=== PATIENT | female | born 1995 | race Hispanic/Latino ===

== ENCOUNTER 2022-05-19 10:21 | Inpatient (IN) | payer BC, SELFPAY ==
[~2022-05-19 10:21] MED LIST: Bupivacaine HCl 0.5%/Epinephrine 1:200,000/PF 30 ml Vial ONE
[2022-05-19 10:41] VITALS: BMI 24.3
[2022-05-19] MEDS ORDERED: Ondansetron PF 4 MG/2 ML Vial IVP PRN ×4 (11:25→17:01)
[2022-05-19 11:26] LABS: Hemoglobin 11.2 g/dL (12.0-15.5); Mean Corpuscular HGB CONC 33.2 g/dL (32.0-36.0); Mean Corpuscular Hemoglobin 28.5 pg (27.0-33.0); Mean Corpuscular Volume 85.8 fl (81.6-98.3); Mean Platelet Volume 10.4 fl (7.4-10.4); Platelet Count 256 10x3/uL (150-450); RBC Distribution Width 16.7 % (11.5-14.5); Red Blood Cell (RBC) Count 3.93 10x6/uL (3.90-5.03); White Blood Cell (WBC) Count 8.2 10x3/uL (3.5-10.5)
[2022-05-19] MEDS ORDERED: Lactated Ringer's 1,000 ML IV SCH ×2 (11:30→13:45)
[2022-05-19] MEDS ORDERED: Dextrose 5%-Lactated Ringers 1,000 ML IV SCH (11:30)
[2022-05-19 12:26] LABS: SARS-CoV-2 NAA Rapid Test Not Detected (NotDetected)
[2022-05-19] MEDS ORDERED: NS w/ Oxytocin 30 units 500 ML ONE (13:41)
[2022-05-19] MEDS ORDERED: NS w/ Oxytocin 30 units 500 ML IV SCH ×3 (13:45→17:15)
[2022-05-19] MEDS ORDERED: Promethazine HCl 25 MG/ML VIAL IM PRN ×2 (13:45→15:31)
[2022-05-19] MEDS ORDERED: Misoprostol 200 MCG TAB PR PRN (13:45)
[2022-05-19] MEDS ORDERED: hydrALAZINE 20 MG/ML VIAL SLOW IVP PRN ×2 (13:45→17:01)
[2022-05-19] MEDS ORDERED: Ibuprofen 800 MG TAB PO PRN (13:45)
[2022-05-19] MEDS ORDERED: Lidocaine 1% (PF) 30 ML VIAL SC PRN (13:45)
[2022-05-19] MEDS ORDERED: Butorphanol Tartrate 1 MG/ML VIAL SLOW IVP PRN (13:45)
[2022-05-19] MEDS ORDERED: HYDROcodone/Acetaminophen 5/325 mg Tablet PO PRN ×3 (13:45→17:01)
[2022-05-19] MEDS ORDERED: Acetaminophen 500 MG TAB PO PRN (13:45)
[2022-05-19] MEDS ORDERED: Diphenoxylate HCl/Atropine Tablet PO PRN ×2 (13:45)
[2022-05-19] MEDS ORDERED: Docusate 100 MG CAP PO PRN (13:45)
[2022-05-19] MEDS ORDERED: Fentanyl 2 mcg/Bup 0.1% Cadd 100 ML ONE (14:34)
[2022-05-19] MEDS ORDERED: Naloxone HCl 0.4 mg/ml Vial IVP PRN ×2 (15:31)
[2022-05-19] MEDS ORDERED: Moisturizing Cream (Eucerin) 113 GM JAR TOP PRN (15:31)
[2022-05-19] MEDS ORDERED: ePHEDrine Sulfate 50 MG/10 ML VIAL SLOW IVP PRN (15:31)
[2022-05-19] MEDS ORDERED: diphenhydrAMINE 50 MG/ML VIAL IVP PRN (15:31)
[2022-05-19] MEDS ORDERED: Acetaminophen 325 MG TAB PO PRN (15:31)
[2022-05-19] MEDS ORDERED: Lactated Ringer's 500 ML IV PRN (15:35)
[2022-05-19] MEDS ORDERED: Communication Order-Pharmacy FS SCH (15:45)
[2022-05-19] MEDS ORDERED: Fentanyl 2 mcg/Bupivacaine 0.1% Cassette 100 ML EPIDURAL SCH (15:45)
[2022-05-19] MEDS ORDERED: Bisacodyl 10 MG SUPP PR PRN (17:01)
[2022-05-19] MEDS ORDERED: Zolpidem Tartrate 5 MG TAB PO PRN (17:01)
[2022-05-19] MEDS ORDERED: Benzocaine-Menthol 82.5 ML CAN TOP PRN (17:01)
[2022-05-19] MEDS ORDERED: Misoprostol 200 MCG TAB VAG PRN (17:01)
[2022-05-19] MEDS ORDERED: Milk Of Magnesia 30 ML UDCUP PO PRN (17:01)
[2022-05-19] MEDS ORDERED: Boostrix 0.5 ML (Tdap) VIAL (>/=7 yrs of age) IM ONE (17:01)
[2022-05-19] MEDS ORDERED: Preparation H Ointment 28 GM TUBE PR PRN (17:01)
[2022-05-19] MEDS ORDERED: Lanolin Ointment 7 GM TUBE TOP PRN (17:01)
[2022-05-19] MEDS ORDERED: diphenhydrAMINE 25 MG CAP PO PRN ×2 (17:01→17:03)
[2022-05-19] MEDS ORDERED: Witch Hazel-Glycerin 1 EACH JAR TOP PRN (17:03)
[2022-05-19 18:41] LABS: Hemoglobin 11.4 g/dL (12.0-15.5); Mean Corpuscular HGB CONC 33.3 g/dL (32.0-36.0); Mean Corpuscular Hemoglobin 29.4 pg (27.0-33.0); Mean Corpuscular Volume 88.1 fl (81.6-98.3); Mean Platelet Volume 10.6 fl (7.4-10.4); Platelet Count 267 10x3/uL (150-450); RBC Distribution Width 17.1 % (11.5-14.5); Red Blood Cell (RBC) Count 3.88 10x6/uL (3.90-5.03); White Blood Cell (WBC) Count 8.8 10x3/uL (3.5-10.5)
[2022-05-19 19:08] LABS: Syphilis Antibody Nonreactive (Nonreactive); Syphilis Antibody Index 0.37 S/CO (<1.00 Non-Reactive)
[2022-05-19 19:09] LABS: HBSAg Index 0.41 S/CO (0-0.99); HIV (1/2) Antibody/Antigen Non-Reactive (NonReactive); HIV 1/2 INDEX 0.11 S/CO (<1.00); Hep B Surf Ag Non-Reactive S/CO (NonReactive)
[2022-05-19] MEDS: Docusate 100 MG CAP PO SCH (21:22)
[2022-05-19] MEDS: Ibuprofen 800 MG TAB PO SCH (21:23)
[2022-05-20] MEDS: HYDROcodone/Acetaminophen 5/325 mg Tablet PO PRN ×2 (02:38→08:54)
[2022-05-20 04:48] LABS: Hemoglobin 10.2 g/dL (12.0-15.5); Mean Corpuscular HGB CONC 33.8 g/dL (32.0-36.0); Mean Corpuscular Hemoglobin 28.9 pg (27.0-33.0); Mean Corpuscular Volume 85.6 fl (81.6-98.3); Mean Platelet Volume 10.8 fl (7.4-10.4); Platelet Count 245 10x3/uL (150-450); RBC Distribution Width 16.9 % (11.5-14.5); Red Blood Cell (RBC) Count 3.53 10x6/uL (3.90-5.03); White Blood Cell (WBC) Count 9.5 10x3/uL (3.5-10.5)
[2022-05-20] MEDS: Ibuprofen 800 MG TAB PO SCH ×3 (05:54→22:04)
[2022-05-20] MEDS: Prenatal Vitamin 1 TAB PO SCH (08:54)
[2022-05-20] MEDS: Docusate 100 MG CAP PO SCH ×2 (08:54→22:04)
[2022-05-20] MEDS: Ferrous Sulfate 325 MG TAB PO SCH ×2 (08:54→16:26)
[2022-05-20 11:33] VITALS: BP 102/57
[2022-05-20] MEDS: Acetaminophen 325 MG TAB PO PRN ×2 (15:02→20:00)
[2022-05-20 20:47] VITALS: TEMP 97.8
[2022-05-21] MEDS: Ibuprofen 800 MG TAB PO SCH (05:33)
[2022-05-21] MEDS: Docusate 100 MG CAP PO SCH (09:17)
[2022-05-21] MEDS: Prenatal Vitamin 1 TAB PO SCH (09:17)
[2022-05-21] MEDS: Ferrous Sulfate 325 MG TAB PO SCH (09:18)
== END 2022-05-21 11:00 | disposition home or self-care (01) | DRG 807 ==
LOC: CSHLD/OP 10:21 → CSHLD 12:14 → CSHPP 19:25
PROVIDERS: ADMIT Obstetrics & Gynecology; ATTEND Obstetrics & Gynecology
PROC: 10E0XZZ Delivery of Products of Conception, External Approach (ICD-10-PCS; principal; 2022-05-19)
PROC: 10907ZC Drainage of Amniotic Fluid, Therapeutic from Products of Conception, Via Natural or Artificial Opening (ICD-10-PCS; 2022-05-19)
DX: O99.02 Anemia complicating childbirth (principal); Z37.0 Single live birth; Z3A.38 38 weeks gestation of pregnancy; Z20.822 Contact with and (suspected) exposure to COVID-19; D64.9 Anemia, unspecified; Z79.899 Other long term (current) drug therapy; Z88.0 Allergy status to penicillin; Z91.013 Allergy to seafood
CPT/HCPCS: 36415; 51702; 85027; 86780; 86850; 86900; 86901; 87340; 87389; 87804; 99285; J2405; J2590; U0002

== ENCOUNTER 2022-07-01 21:42 | Emergency (ER) | payer BC ==
[2022-07-01 23:10] LABS: #Eosinphils 0.1 10x3/uL (0.0-0.5); #Monocytes 0.3 10x3/uL (0.0-1.1); #Neutrophils 4.3 10x3/uL (1.5-8.4); %Basophils 0.5 % (0.0-2.0); %Eosinophils 1.2 % (0.0-6.0); %Lymphocytes 22.9 % (18.0-47.0); %Monocytes 4.5 % (0.0-10.0); %Neutrophils 70.7 % (40.0-75.0); Hemoglobin 13.7 g/dL (12.0-15.5); Mean Corpuscular HGB CONC 33.5 g/dL (32.0-36.0); Mean Corpuscular Hemoglobin 28.1 pg (27.0-33.0); Mean Corpuscular Volume 83.8 fl (81.6-98.3); Mean Platelet Volume 10.1 fl (7.4-10.4); Platelet Count 251 10x3/uL (150-450); RBC Distribution Width 14.6 % (11.5-14.5); Red Blood Cell (RBC) Count 4.88 10x6/uL (3.90-5.03); White Blood Cell (WBC) Count 6.1 10x3/uL (3.5-10.5)
[2022-07-01 23:16] LABS: BHCG - Serum Negative (NEGATIVE); Pregs Control Background? CLEAR/WHITE (CLR/WHITE); Pregs Control Bar Appear? YES (CONTROL BAR)
[2022-07-01 23:18] LABS: ALT (SGPT) 15 U/L (8-55); AST (SGOT) 18 U/L (5-34); Albumin 4.4 g/dL (3.5-5.0); Alkaline Phosphatase 78 U/L (40-110); Anion Gap 14 mmol/L (10-20); BUN (Urea Nitrogen) 16 mg/dL (7.0-18.7); Bilirubin, Total 0.5 mg/dL (0.2-1.2); Calc. Creatinine Clearance 0 mL/min (70-130); Calcium 9.5 mg/dL (7.8-10.44); Carbon Dioxide 23 mmol/L (22-29); Chloride 106 mmol/L (98-107); Estimated GFR 100; Globulin 3.7 g/dL (2.4-3.5); Glucose 110 mg/dL (70-105); Lipase 41 U/L (8-78); Potassium 3.6 mmol/L (3.5-5.1); Protein, Total 8.1 g/dL (6.0-8.3); Sodium 139 mmol/L (136-145)
[2022-07-01] MEDS ORDERED: Mag-Al Plus 1200 MG/1200 MG/120 MG/30 ML UDCUP ONE (23:44)
[2022-07-01] MEDS ORDERED: Lidocaine Viscous Sol 2% 15 ml UD Cup ONE (23:44)
[2022-07-01] MEDS ORDERED: Famotidine 20 MG TAB ONE (23:45)
== END 2022-07-01 23:48 | disposition home or self-care (01) ==
LOC: CSHERS 21:42
DX: K21.9 Gastro-esophageal reflux disease without esophagitis (principal)
CPT/HCPCS: 36415; 76705; 80053; 83690; 84703; 85025